=== PATIENT | female | born 1960 | race Caucasian/White ===

== ENCOUNTER 2017-10-22 07:54 | Inpatient (IN) | payer OTHER, SELFPAY ==
[2017-10-08 15:23] VITALS: BP 150/72; PULSE 86; RESP 18; TEMP 36.7; O2SAT 99; BMI 25.9
[2017-10-08 17:19] LABS: Absolute Lymphocyte Count 2.29 X10^3/ul (0.83-4.51); Absolute Neutrophil Count 4.7 X10^3/uL (2.0-7.7); Basophil# 0.04 X10^3/uL; Basophil% 0.5 % (0-1); Eosinophil# 0.09 X10^3/uL; Eosinophils% 1.2 % (0-5); Hematocrit 41.6 % (37-47); Hemoglobin 13.4 g/dl (12.0-15.0); Lymphocyte # 2.29 X10^3/ul (4.0); Lymphocyte % 30.4 % (19-41); Mean Corp Hgb Conc 32.2 g/gl (32-36); Mean Corpuscular Hgb 28.9 pg (27.0-32.0); Mean Corpuscular Volume 89.8 fL (81-99); Mean Platelet Vol. 9.7 fl (6.2-12.0); Monocyte# 0.41 X10^3/uL; Monocyte% 5.4 % (0-10); Neutrophil # 4.71 X10^3/uL (2.7-7.7); Neutrophil % 62.5 % (47-70); Platelet Count 409 K/mm3 (150-450); RBC Distribution Width CV 13.6 % (11.6-14.6); RBC Distribution Width SD 44.8 fl (35.1-43.9); Red Blood Count 4.63 M/mm3 (4.2-5.4); White Blood Count 7.5 K/mm3 (4.4-11.0)
[2017-10-08 17:21] LABS: POSITIVE COUNT NO; POSITIVE DIFFERENTIAL NO; POSITIVE MORPHOLOGY NO
[2017-10-08 17:30] LABS: Partial Thromboplast Time 29.7 Seconds (24.1-36.2)
[2017-10-08 18:00] LABS: AST(SGOT) 15 U/L (15-37); Alanine Aminotransfer ALT/SGPT 16 U/L (13-56); Albumin, Serum 3.9 g/dL (3.2-5.0); Alkaline Phosphatase 59 U/L (45-117); Anion Gap 9 (5-15); BUN 12 mg/dL (7-18); BUN/Creat Ratio 13.1 RATIO (10-20); Calcium,Total 9.5 mg/dL (8.5-10.1); Chloride 107 mmol/L (98-107); Creatinine, Serum 0.92 mg/dL (0.55-1.02); EST Glomerular Filtration Rate 68 mL/min (>60); Est Glom Filt Rate - Afr Amer 82 mL/min (>60); Estimated Creatinine Clearance 67.19 ml/min; Globulin 4.2 g/dL (2.2-4.2); Glucose 92 mg/dL (74-106); Potassium 3.8 mmol/L (3.5-5.1); Protein, Total 8.1 g/dL (6.4-8.2); Sodium Level 142 mmol/L (136-145)
--- NOTE | 2017-10-17 12:07 | CASEMGMT ---
Called and spoke to patient regarding discharge needs after upcoming surgery. Patient's plan is to return home with assistance from boyfriend, sons, and/or 3 close friends. Boyfriend, sons, and/or friends will assist to/from outpatient physical therapy, set up at [facility] in [place]. Patient has toilet riser, walker, hand rails at home. There are 2 steps into ranch style house with bedroom and bathroom on 1st level. Patient concerned about having professionally done gel nail maori on fingernails - reports she came in for PAT and also saw her PCP and surgeon and no one said the maori was an issue. Informed patient that if needed, it would be removed on surgery day. Patient stated that surgery instructions stated to stop taking all supplements 5 days prior to surgery, patient did not take vitamin D supplement today and wanted confirmation that this was ok. Patient worried about anesthesia and possibly having spinal anesthetic. Encouraged patient to ask about anesthesia on the day of surgery when anesthesia and surgeon see patient in pre-op. Informed patient that RN-CM would likely see her after surgery to ensure no further discharge needs. Graciela Delgado LPN Clinical Support
[2017-10-22] VITALS (19 sets, daily range): BP systolic 118–141; BP diastolic 64–92; PULSE 66–105; RESP 16–18; TEMP 36–36.6; O2SAT 95–100; BMI 25.9
--- NOTE | 2017-10-22 | HIP_PTH ---
PATIENT: CHANTAL PANDA LOC: MS3 U#:[id number] AGE/SX: 57/F [place] [facility] [place]: Dr. Corrina Moser MD : [id number] BED: 1 DIS: 10/23/2017 SPEC #: [id number] RECD: 10/23/17 09:53 STATUS: MARIANGEL REQ #: [id number] BRANDY: 10/22/17 00:[address]: Kenny Rodriguez DEPT: SURGICAL PATHOLOGY RECD BY: Harpal Trent ENTERED: 10/23/17 09:54 SP TYPE: TOTAL HIP OTHR DR: MD Dr. Corrina Gómez MD Dr. Steven Widmer, MD Out of [facility] Doctor Tissues: Hip, NOS Procedures: Decalcification bone/plaque Surgery Specimen Level IV Comments: @ Ordering doctor for DEC edited from to DR.SWIDME Escobedo by MAGAN at 10/23/17 1516 @ Ordering doctor for SUIV edited from to @ by MAGAN at 10/23/17 1516 @ Submitting doctor edited from to @ by MAGAN at 10/23/17 1516 HEADER OPERATION: Total hip anterior approach PRE-OP DIAGNOSIS: Osteoarthritis right hip TISSUE SUBMITTED: Femoral head MICROSCOPIC DIAGNOSIS Bone and soft tissue of right hip, total hip resection: Severe degenerative joint disease. Mild synovial hyperplasia with mild chronic inflammation. AM:irene 10/29/17 MICROSCOPIC DESCRIPTION Slides are reviewed. GROSS DESCRIPTION Received is one container labeled with the patient's name and designated bone and soft tissue hip, right. The specimen consists of a hurtado femoral head with portion of femoral neck. The femoral head measures 5 x 5.5 x 4 cm and the femoral neck measures 0.5 cm in length. The articular surface displays prominent osteophyte formation, eburnation and bone erosion. Present in the container and also attached to the femoral head are multiple pieces of soft tissue mixed with bone reamings measuring in aggregate 8 x 8 x 3 cm. Also present in the container is a piece of bone measuring 3 x 1 x 0.5 cm. Leasing Property Manager sections are submitted in two cassettes as follows: 1 - soft tissue, 2 - bone after decalcification. / SJ:irene 10/23/17 TC:5 [facility]: [id number], [id number]
--- NOTE | 2017-10-22 07:31 | RAD_ITS ---
STUDY: X-RAY - PELVIS AND RIGHT HIP REASON FOR EXAM: Female, 57 years old. Total right hip replacement. TECHNIQUE: Radiological exam, hip, unilateral, with pelvis when performed; 2 or 3 views. COMPARISON: None. FINDINGS: The patient is status post right total hip replacement. There is good alignment. Postoperative soft tissue changes. RAD/Hip Min 2 Views (Portable) IMPRESSION: Status post total right hip replacement. There is good alignment. Electronically Signed: Bradley Gillette MD at 13:19 EDT Tel [phone], Service support ,
[2017-10-22] MEDS: Celecoxib 200 MG Capsule 400 MG PO (08:42)
[2017-10-22] MEDS: oxyCODONE HCl Cr 10 MG Tablet PO (08:42)
[2017-10-22] MEDS: Acetaminophen 500 MG Tablet 1000 MG PO ×2 (08:42→21:00)
--- NOTE | 2017-10-22 09:05 | PCM.OPRPT ---
Report of Operation Date of Procedure: 10/22/17 Pre-Operative Diagnosis: Right hip primary osteoarthritis Post-Operative Diagnosis: Right hip primary osteoarthritis Surgery/Procedure Performed:: Right direct anterior total hip replacement Description of Surgical Findings:: Stable hip with equal leg length acrobatic rigger: Barbara Joseph Type of Anesthesia:: General Anesthesiologist: Sumanth Stephenson Special Medications: 600 mg clindamycin, 1 g TXA at incision, 1 g TXA closure, 10 mg Decadron, joint cocktail (5 mg Duramorph, 30 mL of 0.5% Ropivicaine, 1000 units of epinephrine, 30 mg of Toradol) Specimen's removed: Bony cuts Estimated Blood Loss (mL): 200 Fluids Replaced: 1200 mL crystalloid Description of Procedure: Components used: 1. Accolade 2 Jackie femoral stem size 4 127? 2. [place] trident acetabular shell size 54 mm 3. Jackie X3 polyethylene E 4. Jackie Biolox delta 36mm, -2.5mm femoral head Brief history operative indications: 57 yo F who failed conservative measures for their hip osteoarthritis. X-rays were consistent with osteoarthritis including joint space narrowing, osteophyte formation and subchondral cysts. Total hip replacement was discussed with the patient with risks and benefits including but not limited to blood loss, DVTs, PEs, neurovascular damage, dislocation, general risks of anesthesia including loss of life. Patient demonstrated an understanding medical clearance is obtained the patient was consented for surgery. Procedure: On the date of procedure the patient's R hip was marked in the preoperative area. Patient was then taken back to the operating room where anesthesia assumed control of the C-spine and airway and administered anesthetic. Patient was transferred to the operating table and placed in the supine position. The hips were placed at the break of the bed and a sacral bump was placed. The R lower extremity was then prepped out in a sterile fashion using chlorhexidine while the surgeon scrubbed. The PA was vital in the positioning of the patient. Upon reentering the room the R lower extremity was draped in the standard orthopedic fashion and the incision was marked. A timeout was called and everyone agreed upon the side, the site, the procedure be performed, antibody given, and patient's identity. At this time incision was made through skin, subcutaneous tissue, and fat down to fascia. The fascia was then incised and the TFL was retracted laterally. A retractor was placed on the lateral border of the femoral neck. Attention was directed to the inferior portion of the approach and all crossing vessels were identified and appropriately coagulated. A retractor was then placed on the medial portion of the femoral neck. The anterior capsule was then cleared of all soft tissue and then H shaped capsulotomy was made. The retractors were then placed inside the capsule. The femoral neck was identified and a cleanup cut was made. At this time a power corkscrew was used to remove the femoral head. Attention was then turned toward the acetabulum where the soft tissues were appropriately retracted and the acetabulum was sequentially reamed to 53 mm. There was a cyst that was debrided of soft tissue. We obtained bone graft from the previous femoral head and impacted it into place with a reverse reaming technique. A 54 mm cup was then selected and impacted into place. 2 screws were placed orthogonally. Acetabular liner was impacted into place and locking mechanism was verified. The position of the acetabular cup was then verified under live fluoroscopy. Attention was then turned to the femur. Soft tissue releases on the medial and lateral femoral neck were appropriately done, the leg was externally rotated and lateralized. A Ivory retractor was placed medially and proximally to the greater trochanter this allowed appropriate visualization and exposure of the femoral canal. Rongeour was then used to remove excess lateral bone. A canal finder and entry broach were used to open the proximal canal. Once we verified we were down the femoral canal we subsequently broached up to a size 4 femur. The appropriate neck was placed in the previously selected head was trialed with a -2.5 mm neck. Traction was pulled and the hip was reduced with internal rotation. Once it was appropriately reduced and stability was checked. There was minimal shuck, equal leg lengths and appropriate stability with hyperextension and external rotation as well as with 90? flexion and internal rotation. Fluoroscopy was then also used to verify the position of the components and leg lengths using the contralateral side for comparison. The trial components were then dislocated the proximal femur was again exposed and the components were removed from the wound. The final components were verified and opened. The wound was copiously irrigated out with normal saline. The acetabulum was checked for any residual debris. The final components were placed and impacted. Traction and internal rotation were again used to reduce the hip. After adequate reduction the hip remained stable with appropriate leg lengths. The final components were once again checked with live fluoroscopy and were found to be satisfactory. The wound was then copiously irrigated with normal saline once more, and hemostasis was obtained. Closure was then done using #1 Vicryl runner to close the fascia. A 2-0 vicryl interuppted sutures were used to close the subcutaneous skin. A 3-0 Monocryl and Steri-Strips were used for final skin closure. A Silverlon dressing was placed. Patient was awakened by anesthesia and transferred to the [facility]. Patient was then transferred to the PACU for recovery. Postoperative plan: Patient will get 24 hours postop antibiotics. Patient will get in-house physical therapy and will be weight-bear as tolerated. Patient will follow up in office in 2 weeks for a wound check and x-rays. Grafts/Implants Used: Jackie Accolade 2 - Complications None - Admit VTE Documentation VTE Present on Admission: No VTE Mechan Device Prophylaxis: SCD's, Thigh High JENNI Hose VTE Pharm Prophylaxis ordered?: Yes
[2017-10-22] MEDS: Cefazolin 2 GM in 0.9% Normal Saline 100 ML IV (09:50)
--- NOTE | 2017-10-22 10:25 | RAD_ITS ---
STUDY: X-RAY - PELVIS AND RIGHT HIP REASON FOR EXAM: Female, 57 years old. Anterior total right hip replacement. TECHNIQUE: Radiological exam, hip, unilateral, with pelvis when performed; 1 view COMPARISON: None. FINDINGS: Intraoperative fluoroscopic services provided for right total hip replacement. RAD/Hip 1 view with Pelvis IMPRESSION: Status post right total hip replacement. There is good alignment. Electronically Signed: Bradley Gillette MD at 13:40 EDT Tel [phone], Service support ,
--- NOTE | 2017-10-22 12:29 | EKG12_ITS ---
Test Reason : Blood Pressure : / mmHG Vent. Rate : 087 BPM Atrial Rate : 087 BPM P-R Int : 148 ms QRS Dur : 086 ms QT Int : 424 ms P-R-T Axes : 062 -02 009 degrees QTc Int : 510 ms Sinus rhythm with Premature atrial complexes Nonspecific ST abnormality Prolonged QT Confirmed by ANTONINA MONTES, SHARON ([id number]), editor & co founder MEAGAN GUTIÉRREZ ([id number]) on 10/24/2017 1:34:38 PM Referred By: Kenny Rodriguez Confirmed By:SHARON SARKAR MD
[2017-10-22] MEDS: Lactated Ringers 1,000 ML 125 ML IV ×2 (14:20→21:04)
--- NOTE | 2017-10-22 16:12 | PCM.PROGNOTE ---
Subjective: This is a 57 year old female with a pmhx of asthma and arthritis, which has been progressively worsening over the past 3 years. Today she was taken to the OR for Right total hip. She tolerated the procedure well. She is currently resting in bed recovering. She has a tremor of her jaw however she is not cold. She has no SOB, fever, chills, nausea, vomiting. Pain is minimal. She has good movement of her feet. She is not wheezy and has not had asthma issues recently. Post op trops negative. No issues with prior surgery (appy) in past. IM consulted for medical management. - Physical Exam General: Alert, Oriented x3, Cooperative HEENT: Atraumatic, PERRLA, EOMI, Normocephalic, - - Tremor in jaw Neck: Supple, No JVD, Negative Carotid Bruits Lungs: Clear to auscultation, Normal air movement Cardiovascular: Regular rate, No murmurs Abdomen: Bowel Sounds Present, Soft, Non Tender Extremities: No edema, Capillary Refill Less than 3 Seconds Skin: No rashes, No breakdown Musculoskeletal: No Tenderness to Palpation of Joints or Extremities Neurological: Cranial nerves II-XII grossly intact Psych/Mental Status: Normal Affect, Appropriate, Alert and oriented to time, place, person, mood and affect Vital Signs Temp Pulse Resp BP Pulse Ox 97.7 F L 72 18 130/70 H 100 10/22/17 15:10 10/22/17 15:10 10/22/17 15:10 10/22/17 15:10 10/22/17 15:10 Oxygen Delivery Method Room Air Weight: 165 lb 9.074 oz Body Mass Index (BMI) 25.9 Intake and Output for Last 24 Hours 10/20/17 10/21/17 10/22/17 23:59 23:59 23:59 Intake Total 1999 Balance 1999 Laboratory Tests Past 24 Hrs 10/22/17 10/22/17 13:10 15:32 Troponin I < 0.015 < 0.015 Medical Necessity - Tobacco Use Smoking Status: Never smoker Assessment/Plan 1. Right total hip POD#0 2/2 osteoarthritis - management per Dr. Rodriguez. Trop neg. Labs normal. nasal mrsa screen+. Pain controlled. 2. Asthma - stable. PRN albuterol. No smoking hx. DVT ppx: per ortho Thank you for the opportunity to participate in the care of this patient. This patient was seen by Felice Davalos PA-C under the supervision of Doctor Jane
[2017-10-22] MEDS: Aspirin 81 MG TAB.CHEW PO (17:57)
[2017-10-22] MEDS: Morphine 2 MG/ML Syringe IV ×2 (17:58→23:20)
[2017-10-22] MEDS: oxyCODONE 5 MG Tablet PO ×2 (20:02→20:59)
[2017-10-22] MEDS: Ketorolac 15 MG/ML Vial IV (20:37)
[2017-10-22] MEDS: Senna/Docusate Sodium 1 Tablet 2 TABLET PO (21:00)
[2017-10-23 02:00] VITALS: PULSE 56
[2017-10-23 03:00] VITALS: BP 102/53; PULSE 65; RESP 16; TEMP 36.4; O2SAT 97
[2017-10-23] MEDS: oxyCODONE 5 MG Tablet PO ×4 (03:46→17:02)
[2017-10-23] MEDS: Acetaminophen 500 MG Tablet 1000 MG PO ×2 (05:52→13:31)
[2017-10-23] MEDS: Ketorolac 15 MG/ML Vial IV (05:53)
[2017-10-23 06:22] LABS: Anion Gap 8 (5-15); BUN 10 mg/dL (7-18); BUN/Creat Ratio 14.7 RATIO (10-20); Calcium,Total 8.8 mg/dL (8.5-10.1); Chloride 109 mmol/L (98-107); Creatinine, Serum 0.68 mg/dL (0.55-1.02); EST Glomerular Filtration Rate 96 mL/min (>60); Est Glom Filt Rate - Afr Amer 116 mL/min (>60); Glucose 106 mg/dL (74-106); Potassium 4.4 mmol/L (3.5-5.1); Sodium Level 142 mmol/L (136-145)
[2017-10-23 06:26] LABS: Hematocrit 31.8 % (37-47); Hemoglobin 10.5 g/dl (12.0-15.0); Mean Corpuscular Hgb 29.7 pg (27.0-32.0); Mean Corpuscular Volume 90.1 fL (81-99); Mean Platelet Vol. 9.5 fl (6.2-12.0); Platelet Count 308 K/mm3 (150-450); RBC Distribution Width CV 13.5 % (11.6-14.6); RBC Distribution Width SD 43.7 fl (35.1-43.9); Red Blood Count 3.53 M/mm3 (4.2-5.4); White Blood Count 12.1 K/mm3 (4.4-11.0)
[2017-10-23 06:30] LABS: Scan Indicated on CBC? Y/N NO
--- NOTE | 2017-10-23 06:47 | PN.ORTHO_ITS ---
Subjective: The patient was sitting in bed upon examination. Patient denies any chest pain , shortness of breath, dizziness, lightheadedness, nausea or vomiting, or calf pain. Pain is controlled on medications. No adverse overnight events. Medications are helpful but patient does complain of right hip pain. Medicine is involved with management of patient. Patient is requesting to go home today. I explained to her if medicine clears patient and if pain is controlled on medications and she tolerates physical therapy we can try to get her home this afternoon/evening.. Objective: Vital signs stable and afebrile. Patient is able to plantarflex and dorsiflex actively. Sensation is intact to light touch to saphenous, sural, superficial and deep peroneal, and tibial distribution. Dressing is clean dry and intact. Negative Homans bilaterally, negative signs and symptoms of DVT. - Physical Exam General: Alert, Oriented x3, Cooperative, No apparent distress Vital Signs Temp Pulse Resp BP Pulse Ox 97.5 F L 65 16 102/53 L 97 10/23/17 03:00 10/23/17 03:00 10/23/17 03:00 10/23/17 03:00 10/23/17 03:00 Oxygen Delivery Method Room Air Weight: 75.1 kg Body Mass Index (BMI) 25.9 Intake and Output for Last 24 Hours 10/21/17 10/22/17 10/23/17 23:59 23:59 23:59 Intake Total 2784 / 2784 2159 / 2159 Balance 2784 / 2784 2159 / 2159 Laboratory Tests Past 24 Hrs 10/22/17 10/22/17 10/22/17 13:10 15:32 18:49 WBC RBC Hgb Hct MCV MCH MCHC RDW RDW Differential Plt Count MPV Sodium Potassium Chloride Carbon Dioxide Anion Gap BUN Creatinine Estim Creat Clear Calc Est GFR (MDRD) Af Amer Est GFR (MDRD) Non-Af BUN/Creatinine Ratio Glucose Calcium Troponin I < 0.015 < 0.015 < 0.015 10/23/17 10/23/17 05:45 05:45 WBC 12.1 H RBC 3.53 L Hgb 10.5 L Hct 31.8 L MCV 90.1 MCH 29.7 MCHC 33.0 RDW 13.5 RDW Differential 43.7 Plt Count 308 MPV 9.5 Sodium 142 Potassium 4.4 Chloride 109 H Carbon Dioxide 25.0 Anion Gap 8 BUN 10 Creatinine 0.68 Estim Creat Clear Calc 90.90 Est GFR (MDRD) Af Amer 116 Est GFR (MDRD) Non-Af 96 BUN/Creatinine Ratio 14.7 Glucose 106 Calcium 8.8 Troponin I Medical Necessity - Tobacco Use Smoking Status: Never smoker Assessment/Plan 1. S/P right direct anterior total hip arthroplasty POD #1 2. Continue Pain Medications: Tylenol and OxyIR 3. DVT Prophylaxis: Aspirin 81 mg twice daily ?4 weeks 4. PT/OT: Weightbearing as tolerated 5. H & H: 10.5/31.8, asymptomatic 6. Leukocytosis: Currently 12.1, afebrile. Patient did receive Decadron intraoperatively 7. Encouraged Incentive Spirometry 8. Continue postoperative medical management per medicine 9. Disposition: Orthopedically stable, patient is requesting to go home today. I discussed with the patient if patient is cleared by medicine and her pain is controlled on medication and tolerates physical therapy we can attempt for possible discharge home this afternoon/evening. Prescriptions will be E scribed to [facility]. She will follow-up per postop instructions.
--- NOTE | 2017-10-23 06:51 | PCM.DC.THR ---
Discharge Diet: No Restrictions Discharge Activity: May Not Drive - while taking narcotic pain medications. May shower in (days): 1 - Turned dressing away from water Ice area for (Minutes): 20 - Every 1-2 hours while awake Weight Bearing Status: Weight bearing as tolerated Elevate: Operative Extremity Additional Activity Instructions:: Wear elastic stockings for 2 weeks. DO NOT use alcohol with narcotic pain medication. DO NOT make important decisions while taking narcotic medication. If you have problems with taking your medication (rash, itching, nausea, etc.) call the office at once. Call your doctor if your incision/area has: Increased Pain/ Swelling, Increased Redness, Foul Smelling Discharge Call your doctor if you observe: Fever of 101 or Higher Remove Dressing in (days):: 4 - Okay to remove dressing on October 27, 2017 Additional Instructions: Follow [place] [facility] postop instructions Allergies/Adverse Reactions: Allergies Penicillins Allergy (Verified 10/08/17 15:11) Swelling Medications to take at Discharge Cholecalciferol (Vitamin D3) [Vitamin D3] 1,000 unit PO DAILY 10/08/17 Meloxicam [Mobic] 7.5 mg PO DAILY 10/08/17 Multivitamin with Minerals [Hair, Skin and Nails] 1 each PO DAILY 10/08/17 Acetaminophen [Tylenol] 1,000 mg PO Q8 #90 tab 10/23/17 Aspirin [Aspirin, Baby] 81 mg PO BIDCM #60 tab.chew 10/23/17 Famotidine [Pepcid] 20 mg PO DAILY #30 tab 10/23/17 Oxycodone [Oxyir] 5 - 10 mg PO Q4H PRN PRN 6 Days #80 tablet 10/23/17 Senna/Docusate Sodium [Senokot-S] 2 tab PO BID #20 tab 10/23/17 The following prescriptions were given: Oxycodone [Oxyir] 5 - 10 mg PO Q4H PRN PRN 6 Days #80 tablet PRN Reason: Mod-Severe Pain (4-11/19) Acetaminophen [Tylenol] 1,000 mg PO Q8 #90 tab Famotidine [Pepcid] 20 mg PO DAILY #30 tab Aspirin [Aspirin, Baby] 81 mg PO BIDCM #60 tab.chew Senna/Docusate Sodium [Senokot-S] 2 tab PO BID #20 tab Primary Care Physician: Marianne Doctor,Out of [Primary Care Provider] - Test Results: Test results from this visit will be discussed in further detail at your follow-up appointment, if applicable. Please Follow Up With: Physical Therapy @ [facility] When: Patient has order and will schedule on her own, should start on October 11 Please Follow Up With: Adam Louis PA-C When: 11/05/17 @ 11:00 am
[2017-10-23] MEDS: Aspirin 81 MG TAB.CHEW PO ×2 (08:29→17:03)
[2017-10-23] MEDS: Multivitamins,Ther W-Minerals Tablet 1 TABLET PO (08:29)
[2017-10-23] MEDS: Senna/Docusate Sodium 1 Tablet 2 TABLET PO (08:30)
[2017-10-23] MEDS: Meloxicam 7.5 MG Tablet PO (08:30)
[2017-10-23] MEDS: Famotidine 20 MG Tablet PO (08:30)
--- NOTE | 2017-10-23 08:39 | NURSING ---
dietary called d/t no tray yet, p.t. called for therapy but pt requesting to eat 1st, pain meds given w/ cup of yogurt
[2017-10-23 08:41] VITALS: BP 119/72; PULSE 61; RESP 18; TEMP 36.9; O2SAT 95
[2017-10-23 09:26] VITALS: PULSE 78
--- NOTE | 2017-10-23 11:25 | CASEMGMT ---
TAMMY ORDOÑEZ Face to Face with patient for initial transition planning/care coordination assessment. RN SMITA introduced self and role at [facility]. Patient lying in bed, alert and oriented. Patient willing to participate in assessment and is able to answer all questions appropriately. Care providers, pharmacy, and demographics verified. Patient lives with family in 1 story home. Patient has cane, walker, raised toilet seat, grab bars at home. Patient wishes to discharge home and is setup with [facility] for outpatient therapy. Patient states she has no further needs or concerns at this time. CM to follow for discharge planning needs that may arise. Disposition Plan: Patient to discharge home with outpatient therapy, family support, and follow-up plans in place. Melodie GAN, RN, CM
--- NOTE | 2017-10-23 12:40 | PCM.PN.HOSP ---
Subjective: f/u for medical management Patient seen and examined Doing very well overall and has no complaints Pain is well controlled Vitals/I&O's: Vital Signs Temp Pulse Resp BP Pulse Ox 98.4 F 78 18 119/72 95 10/23/17 08:41 10/23/17 09:26 10/23/17 08:41 10/23/17 08:41 10/23/17 08:41 Oxygen Delivery Method Room Air Weight: 75.1 kg Body Mass Index (BMI) 25.9 Intake and Output for Last 24 Hours 10/21/17 10/22/17 10/23/17 23:59 23:59 23:59 Intake Total 2784 / 2784 2158 Balance 2784 / 2784 2158 General: Alert, Oriented x3, Cooperative, No apparent distress HEENT: Atraumatic Oral: Moist Mucosa Neck: Supple Lungs: - - non labored Abdomen: - - MWR Neurological: Cranial nerves II-XII grossly intact, Neuro grossly intact Psych/Mental Status: Normal Affect, Appropriate, Alert and oriented to time, place, person, mood and affect Laboratory Results 10/22/17 13:10: Troponin I < 0.015 10/22/17 15:32: Troponin I < 0.015 10/22/17 18:49: Troponin I < 0.015 10/23/17 05:45: WBC 12.1 H, RBC 3.53 L, Hgb 10.5 L, Hct 31.8 L, MCV 90.1, MCH 29.7, MCHC 33.0, RDW 13.5, RDW Differential 43.7, Plt Count 308, MPV 9.5 10/23/17 05:45: Sodium 142, Potassium 4.4, Chloride 109 H, Carbon Dioxide 25.0, Anion Gap 8, BUN 10, Creatinine 0.68, Estim Creat Clear Calc 90.90, Est GFR (MDRD) Af Amer 116, Est GFR (MDRD) Non-Af 96, BUN/Creatinine Ratio 14.7, Glucose 106, Calcium 8.8 Current Medications Acetaminophen (Tylenol) 1,000 mg PO Q8 UZIEL Last Admin: 10/23/17 05:52 Dose: 1,000 mg Albuterol Sulfate (Ventolin Aerosols) 2.5 mg INHALATION Q2H PRN PRN PRN Reason: dyspnea, wheezing [facility] ([facility], [facility]) [facility] Last Admin: 10/23/17 08:29 Dose: 81 mg Cholecalciferol (Vitamin D) 1,[facility] Last Admin: 10/23/17 08:29 Dose: 1,000 unit Famotidine (Pepcid) 20 mg PO DAILY [facility] Last Admin: 10/23/17 08:30 Dose: 20 mg Ketorolac Tromethamine (Toradol) 15 mg IV Q6H PRN PRN PRN Reason: MILD-MOD PAIN (1-5/10) Last Admin: 10/23/17 05:53 Dose: 15 mg Meloxicam (Mobic) 7.5 mg PO DAILY [facility] Last Admin: 10/23/17 08:30 Dose: 7.5 mg Morphine Sulfate () 2 - 4 mg IV Q2H PRN PRN PRN Reason: SEVERE PAIN (6-10/10) Last Admin: 10/22/17 23:20 Dose: 2 mg Morphine Sulfate () 2 - 4 mg IV Q2H PRN PRN PRN Reason: SEVERE PAIN (6-10/10) Multivitamins/Minerals (Multivitamin With Minerals) 1 tablet [facility] Last Admin: 10/23/17 08:29 Dose: 1 tablet Nutritional Formula (Lactose Free) (Ensure Clear) 120 [facility] [place] [facility] [place] Last Admin: 10/23/17 08:29 Dose: Not Given Ondansetron HCl (Zofran) 4 mg IV Q8H PRN PRN PRN Reason: NAUSEA Oxycodone HCl (Oxyir) 5 - 10 mg PO Q4H PRN PRN PRN Reason: MOD-SEVERE PAIN (4-10/10) Last Admin: 10/23/17 08:28 Dose: 10 mg Promethazine HCl (Phenergan) 12.5 mg IM Q6H PRN PRN; Protocol PRN Reason: NAUSEA/VOMITING Senna/Docusate Sodium (Senokot-S, Aida-Colace) 2 tablet PO BID [facility] Last Admin: 10/23/17 08:30 Dose: 2 tablet Medical Necessity - Tobacco Use Smoking Status: Never smoker Assessment/Plan 1. Right total hip POD#1 2/2 osteoarthritis - management per Dr. Rodriguez. Pain controlled. 2. Asthma - stable. PRN albuterol. No smoking hx. Patient stable and ok for discharge from medicine standpoint Code Visit Inpatient E&M: 32176 Subs Hosp L2
--- NOTE | 2017-10-23 12:43 | PN_ITS ---
Subjective: f/u for medical management Patient seen and examined Doing very well overall and has no complaints Pain is well controlled Vitals/I&O's: Vital Signs Temp Pulse Resp BP Pulse Ox 98.4 F 78 18 119/72 95 10/23/17 08:41 10/23/17 09:26 10/23/17 08:41 10/23/17 08:41 10/23/17 08:41 Oxygen Delivery Method Room Air Weight: 75.1 kg Body Mass Index (BMI) 25.9 Intake and Output for Last 24 Hours 10/21/17 10/22/17 10/23/17 23:59 23:59 23:59 Intake Total 2784 / 2784 2158 Balance 2784 / 2784 2158 General: Alert, Oriented x3, Cooperative, No apparent distress HEENT: Atraumatic Oral: Moist Mucosa Neck: Supple Lungs: - - non labored Abdomen: - - MWR Neurological: Cranial nerves II-XII grossly intact, Neuro grossly intact Psych/Mental Status: Normal Affect, Appropriate, Alert and oriented to time, place, person, mood and affect Laboratory Results 10/22/17 13:10: Troponin I < 0.015 10/22/17 15:32: Troponin I < 0.015 10/22/17 18:49: Troponin I < 0.015 10/23/17 05:45: WBC 12.1 H, RBC 3.53 L, Hgb 10.5 L, Hct 31.8 L, MCV 90.1, MCH 29.7, MCHC 33.0, RDW 13.5, RDW Differential 43.7, Plt Count 308, MPV 9.5 10/23/17 05:45: Sodium 142, Potassium 4.4, Chloride 109 H, Carbon Dioxide 25.0, Anion Gap 8, BUN 10, Creatinine 0.68, Estim Creat Clear Calc 90.90, Est GFR ( MDRD) Af Amer 116, Est GFR (MDRD) Non-Af 96, BUN/Creatinine Ratio 14.7, Glucose 106, Calcium 8.8 Current Medications Acetaminophen (Tylenol) 1,000 mg PO Q8 [facility] Last Admin: 10/23/17 05:52 Dose: 1,000 mg Albuterol Sulfate (Ventolin Aerosols) 2.5 mg INHALATION Q2H PRN PRN PRN Reason: dyspnea, wheezing [facility], [facility]) [facility] Admin: 10/23/17 08:29 Dose: 81 mg Cholecalciferol (Vitamin D) 1,[facility] Last Admin: 10/23/17 08:29 Dose: 1,000 unit Famotidine (Pepcid) 20 mg PO DAILY [facility] Last Admin: 10/23/17 08:30 Dose: 20 mg Ketorolac Tromethamine (Toradol) 15 mg IV Q6H PRN PRN PRN Reason: MILD-MOD PAIN (1-5/10) Last Admin: 10/23/17 05:53 Dose: 15 mg Meloxicam (Mobic) 7.5 mg PO DAILY [facility] Last Admin: 10/23/17 08:30 Dose: 7.5 mg Morphine Sulfate () 2 - 4 mg IV Q2H PRN PRN PRN Reason: SEVERE PAIN (6-10/10) Last Admin: 10/22/17 23:20 Dose: 2 mg Morphine Sulfate () 2 - 4 mg IV Q2H PRN PRN PRN Reason: SEVERE PAIN (6-10/10) Multivitamins/Minerals (Multivitamin With Minerals) [facility] Last Admin: 10/23/17 08:29 Dose: 1 tablet Nutritional Formula (Lactose Free) (Ensure Clear) [facility] [place] Last Admin: 10/23/17 08:29 Dose: Not Given Ondansetron HCl (Zofran) 4 mg IV Q8H PRN PRN PRN Reason: NAUSEA Oxycodone HCl (Oxyir) 5 - 10 mg PO Q4H PRN PRN PRN Reason: MOD-SEVERE PAIN (4-10/10) Last Admin: 10/23/17 08:28 Dose: 10 mg Promethazine HCl (Phenergan) 12.5 mg IM Q6H PRN PRN; Protocol PRN Reason: NAUSEA/VOMITING Senna/Docusate Sodium (Senokot-S, Aida-Colace) 2 tablet PO BID [facility] Last Admin: 10/23/17 08:30 Dose: 2 tablet Medical Necessity - Tobacco Use Smoking Status: Never smoker Assessment/Plan 1. Right total hip POD#1 2/2 osteoarthritis - management per Dr. Rodriguez. Pain controlled. 2. Asthma - stable. PRN albuterol. No smoking hx. Patient stable and ok for discharge from medicine standpoint Code Visit Inpatient E&M: 38196 Subs Hosp L2
== END 2017-10-23 17:13 | disposition home or self-care (01) | DRG 470 ==
PROVIDERS: Anesthesiology; Admitting Provider Specialist; Visit Provider Internal Medicine
PROC: 0SR904A Replacement of Right Hip Joint with Ceramic on Polyethylene Synthetic Substitute, Uncemented, Open Approach (ICD-10-PCS; CPT 27284; principal; 2017-10-22 09:45)
DX: M16.11 Unilateral primary osteoarthritis, right hip (principal); J45.909 Unspecified asthma, uncomplicated; E66.3 Overweight; Z68.25 Body mass index [BMI] 25.0-25.9, adult
CPT/HCPCS: 36415; 71046; 73501; 73502; 76000; 80048; 80076; 84484; 85025; 85027; 85610; 85730; 87077; 87081; 88305; 88311; 93005; 97110; 97161; 97166; 97530; 99251; C1776; J7120; G0463; J2405